=== PATIENT | male | born 1990 | race Caucasian/White ===

== ENCOUNTER 2017-01-15 03:52 | Emergency (ER) | payer SELFPAY ==
[~2017-01-15] VITALS: Ht 172.7 cm; Wt 68.0 kg
[~2017-01-15 03:52] MED LIST: DICL75 PO; MMW SSP; PENI500T PO
[2017-01-15 03:55] VITALS: BP 120/92; PULSE 99; RESP 15; TEMP 98.1; O2SAT 98
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
--- NOTE | 2017-01-15 06:07 | RADRPT ---
EXAM DATE/TIME: 01/15/2017 05:41 [facility] COMPARISON: No previous studies available for comparison. INDICATIONS : Shortness of breath by recent history. MEDICAL HISTORY : None. SURGICAL HISTORY : None. ENCOUNTER: Initial ACUITY: 3 weeks PAIN SCORE: 0/10 LOCATION: Bilateral chest FINDINGS: A single view of the chest demonstrates the lungs to be symmetrically aerated without evidence of mas s, infiltrate or effusion. The cardiomediastinal contours are unremarkable. Osseous structures are intact. CONCLUSION: Normal examination for a patient of this age. Artem Thacker MD on January 15, 2017 at 6:05 Board Certified Radiologist. This report was verified electronically.
== END 2017-01-15 06:28 | disposition home or self-care (01) ==
LOC: NEPB 03:52
DX: R06.00 Dyspnea, unspecified (principal); F17.210 Nicotine dependence, cigarettes, uncomplicated
CPT/HCPCS: 71010; 99284